=== PATIENT | male | born 1990 | race Caucasian/White ===

== ENCOUNTER 2016-09-25 02:00 | Inpatient (IN) | payer OTHER ==
--- NOTE | ~2016-09-25 | HP ---
Unit #: [id number] #: [id number] Patient: EVERTON RUBY [id number] [place] [address] [id number] MR#: [id number] NAME: EVERTON RUBY ROOM: 75 Age: 26 Sex: M Admission Date: 09/25/2016 : 1990 Attending Physician: Virgil Schulte M.D. Admitting Physician: Virgil Schulte M.D. Primary Care Physician: Guero Dai M.D. HISTORY AND PHYSICAL HISTORY OF PRESENT ILLNESS The patient is a 26-year-old male admitted to [facility] on 09/25/2016 for psychosis. PAST MEDICAL HISTORY 1. History of cranial stenosis. 2. Headaches. 3. Possible asthma. PAST SURGICAL HISTORY Brain surgery. SOCIAL HISTORY The patient works at [employer]. He lives with a family he met on [employer] He smokes three to four cigarettes per day, uses marijuana five to six times per week but has tried almost every drug. FAMILY MEDICAL HISTORY Noncontributory. ALLERGIES No known drug allergies. CURRENT MEDICATIONS Adderall, Depakote and Trazodone. REVIEW OF SYSTEMS CONSTITUTIONAL: No fever or chills. HEENT: Denies any sore throat, ear pain or runny nose. CARDIOVASCULAR: Denies chest pain, irregular heart rhythm or palpitations. CHEST: Denies shortness of breath or cough. No hemoptysis. GASTROINTESTINAL: Denies nausea, vomiting, diarrhea or chronic constipation. ENDOCRINE: Denies history of increased thirst or urination. No recent significant weight loss or gain. GENITOURINARY: Denies dysuria, frequency, or hematuria. SKIN: Denies any rashes. HEMATOLOGIC: Denies history of increased bleeding or bruising. MUSCULOSKELETAL: Denies any hot, swollen joints. No generalized muscle pain. NEUROLOGIC: Denies problems with vision or speech. No frequent, severe headaches. No numbness, tingling or weakness in any extremities. Denies loss of bladder or bowel control. Unit #: [id number] #: [id number] Patient: EVERTON RUBY PHYSICAL EXAM GENERAL: He is awake, alert and oriented in no acute distress. VITAL SIGNS: Temperature 98.2, heart rate 96, respiration 16, blood pressure 108/75. HEIGHT: 5'5". WEIGHT: 157 pounds. SKIN: Warm and dry without rash or lesion. HEENT: Normocephalic. TMs not viewed. Oral and nasal passages clear. Conjunctivae clear. PERRLA. EOMs intact. NECK: Supple without lymphadenopathy or thyromegaly. HEART: Regular rate and rhythm without murmur. LUNGS: Clear. ABDOMEN: Soft, nontender. : Not done. EXTREMITIES: No evidence of cyanosis, clubbing or edema. Moves all without focal deficit. NEUROLOGICAL: Grossly within normal limits. Cranial Nerves: II: Visual wilburn are intact. III, IV AND : Extraocular movements are intact. Pupils are equal, round and reactive to light. V: Facial sensation is grossly normal. VII: Facial movements and expression are normal. VIII: Auditory acuity grossly intact. IX, X: Uvula is midline. Phonation is normal. XI: Patient shrugs shoulders and turns head normally. XII: Tongue protrudes in the midline. Sensory and Motor Function: Sensory and motor sensation is grossly normal. Motor: moves all extremities well. IMPRESSION 1. Psychiatric admission. 2. History of cranial stenosis. 3. Headaches. 4. Possible asthma. 5. Polysubstance abuse. RECOMMENDATIONS Psychiatric per psychiatrist. MEDICAL: No contraindication to participate in facility activities. MEDICAL PROGNOSIS Good. MEDICAL CONDITION Stable. Dictated by... Cristy Mike/bryn TD: 09/26/2016 05:48 JOB #: [id number] Unit #: [id number] #: [id number] Patient: EVERTON RUBY HISTORY AND PHYSICAL Page 1 of 1 X MEET COOK APRN HISTORY AND PHYSICAL
--- NOTE | ~2016-09-25 | DS ---
Unit #: [id number] #: [id number] Patient: KEENAN RUBY [id number] [facility] [address] [place] [address] [id number] MR#: [id number] NAME: KEENAN RUBY ROOM: [facility] Age: 26 Sex: M Admission Date: 09/25/2016 : 1990 Discharge Date: 09/27/2016 Attending Physician: Virgil Schulte M.D. Primary Care Physician: Guero Dai M.D. DISCHARGE SUMMARY REASON FOR ADMISSION Keenan is a 26-year-old man with previous admission to this facility for polysubstance dependence, mood problems, and ADD. The patient had some paranoia, possibly associated with drug use and has suicidal plan to jump from a tall building. He was unable to contract for safety and was admitted for stabilization. DIAGNOSTIC STUDIES LABORATORY RESULTS: Please see hospital chart. Laboratory studies were within normal limits. HOSPITAL COURSE The patient was admitted and placed on suicide precautions. Depakote 500 mg daily was restarted and Zoloft 50 mg daily was added for depression with trazodone 50 mg at bedtime as needed for insomnia. The patient was generally quiet and cooperative with the hospitalization and his psychosis and paranoia were resolved. On the date of discharge, he had no further suicidal ideation, intent, or plan and no paranoia. DISCHARGE DIAGNOSES AXIS I: Major depression with psychosis; polysubstance dependence. AXIS II: No diagnosis. AXIS III: None acute. AXIS IV: AXIS V: DISCHARGE INSTRUCTIONS Follow up with [facility]. DISCHARGE MEDICATIONS Depakote 500 mg daily for mood stability, Zoloft 50 mg daily for depression, trazodone 50 mg at bedtime as needed for insomnia. CONDITION AT DISCHARGE Improved. PROGNOSIS Fair to good. DIET AND ACTIVITY Ad dutch. Unit #: [id number] #: [id number] Patient: KEENAN RUBY Dictated by... Araceli Cuevas/angie TD: 09/27/2016 15:10 JOB #: [id number] DISCHARGE SUMMARY Page 1 of 1 X Virgil Schulte MD X DISCHARGE SUMMARY
--- NOTE | ~2016-09-25 | PA ---
Unit #: [id number] #: [id number] Patient: KEENAN RUBY [id number] [facility] [address] [place] [address] [id number] I MR#: [id number] NAME: KEENAN RUBY ROOM: P175 Age: 26 Sex: M Admission Date: 09/25/2016 : 1990 Date of Assessment: 09/26/2016 Attending Physician: Virgil Schulte M.D. Admitting Physician: Virgil Schulte M.D. Primary Care Physician: Guero Dai M.D. PSYCHIATRIC ASSESSMENT DATE OF SERVICE 09/26/2016. INFORMANTS The patient reliable; [employer], reliable. CHIEF COMPLAINT Paranoia. HISTORY OF PRESENT ILLNESS Keenan is a 26-year-old man with a history of mood problems, polysubstance dependence, and attention deficit disorder. The patient reports increasing paranoia and feels like he is being taken advantage of as he is living with the family that he met on [address] and is working in exchange for his housing. He is fearful that these people will "rape him" and says that he will jump off a tall building if he was allowed to leave the hospital. He was unable to contract for safety and was admitted for further assessment and stabilization. PAST PSYCHIATRIC HISTORY Two previous admissions to this facility for what appeared to be chemically-induced psychosis. He has also been at the [facility] in the past and outpatient treatment through [facility]. He is currently taking Depakote and is "trying to get off Adderall." FAMILY PSYCHIATRIC HISTORY There is a family history of schizoaffective disorder, bipolar disorder, alcohol problems, and substance abuse problems. SOCIAL HISTORY The patient denied a history of childhood abuse or neglect. He is a heterosexual man with no current partner. He has lost most of his family and is currently staying with a family that he met on an [employer] site. 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 PAST MEDICAL HISTORY None currently. MEDICATIONS None. ALLERGIES No known medication allergies. Unit #: [id number] #: [id number] Patient: KEENAN RUBY SUBSTANCE USE HISTORY The patient has a history of abusing Adderall as well as cannabis, cocaine, hallucinogens, and occasionally alcohol. MENTAL STATUS EXAMINATION Keenan presented as a mildly disheveled man who appeared his stated age. He was cooperative with the examination. His speech was spontaneous and easily understood. His musculoskeletal examination was calm. His mood was irritable with a decreased range of affect. He was alert and fully oriented. His memory and concentration were fair to good. His thought processes were goal directed and he appeared paranoid and watchful during my assessment. He had no suicidal ideation, intent, or plan. Insight and judgment, fair. Fund of knowledge and abstraction, fair. ASSETS AND LIABILITIES Assets; the patient knows local resources and presents voluntarily for treatment. Liabilities; include lack of response to current treatment, ongoing drug use. ADMITTING DIAGNOSES AXIS I: Major depression with psychosis, F33.2; polysubstance dependence. AXIS II: No diagnosis. AXIS III: None acute. AXIS IV: AXIS V: PSYCHIATRIC PLAN The patient was admitted and placed on suicide precautions. Baseline laboratory studies and physical examination will be ordered. We will continue Depakote, discontinue Adderall, and add Zoloft 50 mg daily for depression. He will enroll in both psychotherapy groups and activities with dual diagnosis focus. Treatment goals are resolution of SI, resolution of psychosis, improvement in insight, and improvement in coping skills. DISCHARGE PLANNING Follow up [place] [facility] ESTIMATED LENGTH OF STAY 5 days. Dictated by... Virgil Schulte M.D. [facility]/angie TD: 09/26/2016 17:05 JOB #: [id number] Unit #: [id number] #: [id number] Patient: KEENAN RUBY PSYCHIATRIC ASSESSMENT Page 1 of 1 X Virgil Schulte MD X PSYCHIATRIC ASSESSMENT
[2016-09-26 09:36] LABS: BASOPHIL% 0.8 % (0-2.5); EOSINOPHIL# 0.1 X10e3 (0-0.7); EOSINOPHIL% 1.4 % (0.0-7.0); HEMATOCRIT 47.4 % (38.0-50.0); HEMOGLOBIN 15.8 gm/dL (13.0-16.0); LYMPHOCYTE# 2.5 X10e3 (1.0-3.5); LYMPHOCYTE% 41.5 % (17.0-45.0); MEAN CELL VOLUME 91.4 FL (83-96); MEAN CORPUSCULAR HEMOGLOBIN 30.4 PG (28-34); MEAN CORPUSCULAR HGB CONC 33.3 g/dL (30-36); MEAN PLATELET VOLUME 9.3 FL (6.5-11.5); MONOCYTE# 0.5 X10e3 (0-1.0); MONOCYTE% 8.4 % (3.0-12.0); NEUTROPHIL# 2.9 X10e3 (1.5-7.1); NEUTROPHIL% 47.9 % (40-75); PLATELET COUNT 200 X10e3 (140-420); RED BLOOD COUNT 5.19 X10e (3.90-5.60)
[2016-09-26 09:51] LABS: DIFF IND NO
[2016-09-26 10:03] LABS: BILIRUBIN,TOTAL 1.3 mg/dL (0.2-2.0); BUN/CREATININE RATIO 18.75; CREATININE SERUM 0.8 mg/dL (0.6-1.4); GLOM FILT RATE Estimated 123.3 mL/min (>60); POTASSIUM 4.2 mmol/L (3.5-5.1); PROTEIN TOTAL SERUM 6.2 g/dL (6.0-8.3)
== END 2016-09-27 12:45 | DRG 885 ==
LOC: P1E 06:21
PROVIDERS: Psychiatry & Neurology Psychiatry
DX: F32.3 Major depressive disorder, single episode, severe with psychotic features (principal); F17.210 Nicotine dependence, cigarettes, uncomplicated; Z81.8 Family history of other mental and behavioral disorders; Z81.4 Family history of other substance abuse and dependence; F98.8 Other specified behavioral and emotional disorders with onset usually occurring in childhood and adolescence; F19.10 Other psychoactive substance abuse, uncomplicated; J45.909 Unspecified asthma, uncomplicated
CPT/HCPCS: 80053; 80164; 85025